=== PATIENT | female | born 1965 | race Caucasian/White ===

== ENCOUNTER 2018-04-23 22:45 | Emergency (ER) | payer OTHER ==
--- NOTE | 2018-04-23 23:18 | RAD ---
TWO VIEWS CHEST: Comparison: 05-04-15 History: Fluttering chest pain. FINDINGS: Two views of the chest show normal sized cardiomediastinal silhouette. There is no evidence of consol idation, mass, or pleural effusion. The bones are unremarkable. IMPRESSION: No evidence of acute cardiopulmonary disease. POS: [facility]
[2018-04-23 23:25] LABS: #Basophils 0.1 thou/uL (0.0-0.2); #Eosinphils 0.2 thou/uL (0.0-0.7); #Lymphocytes 2.6 thou/uL (1.20-3.40); #Monocytes 0.7 thou/uL (0.11-0.59); #Neutrophils 5.1 thou/uL (1.40-6.50); %Basophils 1.1 % (0.0-1.0); %Eosinophils 2.5 % (0.0-10.0); %Lymphocytes 29.7 % (21.0-51.0); %Neutrophils 58.7 % (42.0-75.0); Hemoglobin 15.3 g/dL (12.0-16.0); Mean Corpuscular HGB CONC 34.3 g/dL (32.0-36.0); Mean Corpuscular Volume 90.4 fL (78.0-98.0); Mean Platelet Volume 9.4 fL (7.4-10.4); Platelet Count 230 thou/uL (130-400); RBC Distribution Width 11.9 % (11.5-14.5); Red Blood Cell (RBC) Count 4.94 mill/uL (4.20-5.40); White Blood Cell (WBC) Count 8.7 thou/uL (4.8-10.8)
[2018-04-23 23:47] LABS: ALT (SGPT) 76 U/L (8-55); AST (SGOT) 52 U/L (5-34); Albumin 3.9 g/dL (3.5-5.0); Alkaline Phosphatase 214 U/L (40-150); Anion Gap 14 mmol/L (10-20); BUN (Urea Nitrogen) 14 mg/dL (9.8-20.1); Bilirubin, Total 0.6 mg/dL (0.2-1.2); CK (CPK) 35 U/L (29-168); Calc. Creatinine Clearance 0 mL/min (70-130); Calcium 9.2 mg/dL (7.8-10.44); Carbon Dioxide 23 mmol/L (22-29); Chloride 102 mmol/L (98-107); Estimated GFR-MDRD 61; Globulin 3.7 g/dL (2.4-3.5); Glucose 245 mg/dL (70-105); Potassium 3.8 mmol/L (3.5-5.1); Protein, Total 7.6 g/dL (6.0-8.3); Sodium 135 mmol/L (136-145)
[2018-04-23 23:51] LABS: CKMB 0.6 ng/mL (0-6.6); Troponin I Less than 0.010 ng/mL (< 0.028)
[2018-04-24 00:16] LABS: Thyroid Stimulating Hormone 5.7142 uIU/mL (0.35-4.94)
== END 2018-04-24 00:41 | disposition home or self-care (01) ==
LOC: ERS 22:45
DX: R00.2 Palpitations (principal); Z71.6 Tobacco abuse counseling; I10 Essential (primary) hypertension; F41.9 Anxiety disorder, unspecified; F32.9 Major depressive disorder, single episode, unspecified; F17.210 Nicotine dependence, cigarettes, uncomplicated; Z79.899 Other long term (current) drug therapy
CPT/HCPCS: 36415; 71046; 80053; 82550; 82553; 84436; 84443; 84484; 85025; 85379; 93005; 94760; 99406

== ENCOUNTER 2018-12-22 13:09 | Outpatient (CLI) | payer OTHER | END 2018-12-22 13:10 | disposition home or self-care (01) | LOC: DTY/OP 13:09 | PROVIDERS: ATTEND Specialist | DX: Z01.818 Encounter for other preprocedural examination (principal); E66.01 Morbid (severe) obesity due to excess calories | CPT/HCPCS: 97802 ==

== ENCOUNTER 2019-02-06 11:13 | Outpatient (CLI) | payer OTHER | END 2019-02-06 11:14 | disposition home or self-care (01) | LOC: DTY/OP 11:13 | PROVIDERS: ATTEND Specialist | DX: Z01.818 Encounter for other preprocedural examination (principal); E66.01 Morbid (severe) obesity due to excess calories | CPT/HCPCS: 97802 ==

== ENCOUNTER 2019-02-28 11:23 | Outpatient (CLI) | payer OTHER | END 2019-02-28 11:24 | disposition home or self-care (01) | LOC: DTY/OP 11:23 | PROVIDERS: ATTEND Specialist | DX: Z01.818 Encounter for other preprocedural examination (principal); E66.01 Morbid (severe) obesity due to excess calories | CPT/HCPCS: 97802 ==

== ENCOUNTER 2019-04-05 14:50 | Outpatient (CLI) | payer OTHER | END 2019-04-05 14:51 | disposition home or self-care (01) | LOC: DTY/OP 14:50 | PROVIDERS: ATTEND Specialist | DX: Z01.818 Encounter for other preprocedural examination (principal); E66.01 Morbid (severe) obesity due to excess calories | CPT/HCPCS: 97802 ==

== ENCOUNTER 2019-05-05 16:16 | Emergency (ER) | payer OTHER, MEDICAID ==
[2019-05-05 16:54] LABS: Bacteria/HPF 4+ HPF (None Seen); Bilirubin Negative (Negative); Blood, Urine 1+ (Negative); Clarity Turbid (Clear); Glucose, Urine (Dipstick) Normal (Negative); Leukocyte 500 Leu/uL (Negative); Nitrite Negative (Negative); Protein, Urine (Dipstick) 20 mg/dL (Neg-Trace); Urobilinogen Normal mg/dL (Less than 2); WBC/HPF Greater than 50 HPF (0-3)
[2019-05-05 17:08] LABS: #Basophils 0.1 thou/uL (0.0-0.2); #Eosinphils 0.2 thou/uL (0.0-0.7); #Lymphocytes 3.3 thou/uL (1.20-3.40); #Monocytes 0.9 thou/uL (0.11-0.59); #Neutrophils 9.3 thou/uL (1.40-6.50); %Basophils 0.4 % (0.0-1.0); %Eosinophils 1.7 % (0.0-10.0); %Lymphocytes 23.9 % (21.0-51.0); %Monocytes 6.5 % (0.0-10.0); %Neutrophils 67.5 % (42.0-75.0); Hemoglobin 14.5 g/dL (12.0-16.0); Mean Corpuscular HGB CONC 36.3 g/dL (32.0-36.0); Mean Corpuscular Hemoglobin 33.2 pg (27.0-31.0); Mean Corpuscular Volume 91.3 fL (78.0-98.0); Mean Platelet Volume 8.5 fL (7.4-10.4); Platelet Count 218 thou/uL (130-400); RBC Distribution Width 11.7 % (11.5-14.5); Red Blood Cell (RBC) Count 4.37 mill/uL (4.20-5.40); White Blood Cell (WBC) Count 13.8 thou/uL (4.8-10.8)
[2019-05-05 17:29] LABS: ALT (SGPT) 29 U/L (8-55); AST (SGOT) 23 U/L (5-34); Albumin 4.2 g/dL (3.5-5.0); Alkaline Phosphatase 91 U/L (40-110); Anion Gap 14 mmol/L (10-20); BUN (Urea Nitrogen) 19 mg/dL (9.8-20.1); Bilirubin, Total 0.4 mg/dL (0.2-1.2); Calc. Creatinine Clearance 0 mL/min (70-130); Calcium 9.6 mg/dL (7.8-10.44); Carbon Dioxide 25 mmol/L (22-29); Chloride 101 mmol/L (98-107); Estimated GFR-MDRD 58; Globulin 3.3 g/dL (2.4-3.5); Glucose 104 mg/dL (70-105); Potassium 3.9 mmol/L (3.5-5.1); Protein, Total 7.5 g/dL (6.0-8.3); Sodium 136 mmol/L (136-145)
--- NOTE | 2019-05-05 17:32 | RAD ---
Chest AP view INDICATION: Burning with urination COMPARISON: April 23, 2018 FINDINGS: Lungs:The lungs are clear Cardiac silhouette:The cardiomediastinal silhouette appears within normal limits. Pulmonary vasculature:Normal Pleural spaces:No pleural effusion or pneumothorax is demonstrated. Upper abdomen:No abnormality seen. Osseous structures: No acute osseous abnormality. Additional findings:None. IMPRESSION: No acute cardiopulmonary abnormality.
--- NOTE | 2019-05-05 18:29 | CT ---
CT OF THE ABDOMEN AND PELVIS WITHOUT IV CONTRAST INDICATION: Burning with urination COMPARISON: None FINDINGS: This examination is limited for the evaluation of solid organs and vascular structures due to the lac k of intravenous contrast. ABDOMEN: Lung bases: Clear Liver: Fatty infiltration Gallbladder: Surgically absent Pancreas: Normal. Adrenal glands: Normal. Spleen: Normal. Kidneys and ureters: There is lobulation involving superior pole left kidney likely reflective of anthony or renal cortical scarring. No renal or ureteral calculus is evident. No hydronephrosis is demonstrated. There is mild inflammatory stranding seen surrounding the proximal left ureter. Vasculature: Normal. Lymph nodes:No lymphadenopathy. Free fluid in abdomen:No free fluid is evident. PELVIS: Small and large bowel: Colonic diverticulosis. Appendix:Surgically absent Bladder: Normal. Rectal and perirectal soft tissues:Normal. Reproductive structures: Normal. Free fluid in pelvis: No free fluid is evident. Lymphadenopathy pelvis: No lymphadenopathy is evident. Osseous structures: No acute osseous abnormality. No destructive osteolytic or osteoblastic lesion i s identified. There is scattered degenerative and osteoarthritic changes. Soft tissues:Normal. IMPRESSION: 1. No renal or ureteral calculus. No hydronephrosis. There is mild inflammatory stranding involving t he proximal left ureter which is nonspecific. An ascending left-sided urinary tract infection cannot be entirely excluded. Component of pyelonephritis cannot be entirely excluded; however, there is no perinephric stranding. There is no asymmetric enlargement of the left kidney. Would recommend correlation with the clinical examination. Lobulation of the superior pole left kidney may reflect se quela of prior infection or trauma. 2. Fatty liver 3. Colonic diverticulosis
== END 2019-05-05 19:51 | disposition home or self-care (01) ==
LOC: ERS 16:16
DX: N12 Tubulo-interstitial nephritis, not specified as acute or chronic (principal); F41.9 Anxiety disorder, unspecified; F32.9 Major depressive disorder, single episode, unspecified; F17.210 Nicotine dependence, cigarettes, uncomplicated; I10 Essential (primary) hypertension; Z79.899 Other long term (current) drug therapy
CPT/HCPCS: 36415; 71045; 74176; 80053; 81003; 81015; 84484; 85025; 87077; 87086; 87186; 93005

== ENCOUNTER 2019-05-08 19:30 | Outpatient (CLI) | payer OTHER, MEDICAID | END 2019-05-08 19:31 | disposition home or self-care (01) | LOC: SLEEPLAB 19:30 | PROVIDERS: ATTEND Student in an Organized Health Care Education/Training Program | DX: G47.10 Hypersomnia, unspecified (principal); G47.33 Obstructive sleep apnea (adult) (pediatric); R53.83 Other fatigue; F31.9 Bipolar disorder, unspecified; F41.8 Other specified anxiety disorders; E11.9 Type 2 diabetes mellitus without complications; I10 Essential (primary) hypertension; G47.00 Insomnia, unspecified; R06.83 Snoring; E66.9 Obesity, unspecified; Z68.41 Body mass index [BMI] 40.0-44.9, adult | CPT/HCPCS: 95810 ==

== ENCOUNTER 2019-05-10 13:29 | Outpatient (CLI) | payer OTHER | END 2019-05-10 13:30 | disposition home or self-care (01) | LOC: DTY/OP 13:29 | PROVIDERS: ATTEND Specialist | DX: Z01.818 Encounter for other preprocedural examination (principal); E66.01 Morbid (severe) obesity due to excess calories | CPT/HCPCS: 97802 ==

== ENCOUNTER 2019-05-21 20:30 | Outpatient (CLI) | payer OTHER, MEDICAID | END 2019-05-21 20:31 | disposition home or self-care (01) | LOC: SLEEPLAB 20:30 | PROVIDERS: ATTEND Student in an Organized Health Care Education/Training Program | DX: G47.10 Hypersomnia, unspecified (principal); R53.83 Other fatigue; F31.9 Bipolar disorder, unspecified; E66.9 Obesity, unspecified; F41.8 Other specified anxiety disorders; I10 Essential (primary) hypertension; E11.9 Type 2 diabetes mellitus without complications; G47.33 Obstructive sleep apnea (adult) (pediatric) | CPT/HCPCS: 95811 ==

== ENCOUNTER 2019-06-14 11:28 | Outpatient (CLI) | payer OTHER | END 2019-06-14 11:29 | disposition home or self-care (01) | LOC: DTY/OP 11:28 | PROVIDERS: ATTEND Specialist | DX: Z01.818 Encounter for other preprocedural examination (principal); E66.01 Morbid (severe) obesity due to excess calories | CPT/HCPCS: 97802 ==

== ENCOUNTER 2019-12-19 06:55 | Outpatient (CLI) | payer OTHER ==
--- NOTE | 2019-12-19 07:40 | ULT ---
Sonogram right upper quadrant HISTORY: Abnormal liver function tests. FINDINGS: The gallbladder is surgically absent. Common duct is 0.6 cm. Liver is prominent and diffusely echogenic. No focal mass or intrahepatic biliary dilatation. No free fluid. IMPRESSION : Status post cholecystectomy. No evidence of biliary obstruction. Hepato-steatosis.
== END 2019-12-19 06:56 | disposition home or self-care (01) ==
LOC: BICULT 06:55
PROVIDERS: ATTEND Student in an Organized Health Care Education/Training Program
DX: R74.0 Nonspecific elevation of levels of transaminase and lactic acid dehydrogenase [LDH] (principal); K76.0 Fatty (change of) liver, not elsewhere classified; Z90.49 Acquired absence of other specified parts of digestive tract
CPT/HCPCS: 76705

== ENCOUNTER 2020-02-06 16:07 | Emergency (ER) | payer OTHER ==
[2020-02-06 17:10] LABS: #Basophils 0.1 thou/uL (0.0-0.2); #Eosinphils 0.2 thou/uL (0.0-0.7); #Lymphocytes 2.1 thou/uL (1.20-3.40); #Monocytes 0.7 thou/uL (0.11-0.59); #Neutrophils 6.7 thou/uL (1.40-6.50); %Basophils 0.8 % (0.0-1.0); %Eosinophils 2.1 % (0.0-10.0); %Lymphocytes 21.7 % (21.0-51.0); %Monocytes 6.8 % (0.0-10.0); %Neutrophils 68.6 % (42.0-75.0); Hemoglobin 15.4 g/dL (12.0-16.0); Mean Corpuscular HGB CONC 33.2 g/dL (32.0-36.0); Mean Corpuscular Hemoglobin 30.3 pg (27.0-31.0); Mean Corpuscular Volume 91.2 fL (78.0-98.0); Mean Platelet Volume 9.1 fL (7.4-10.4); Platelet Count 205 thou/uL (130-400); RBC Distribution Width 11.8 % (11.5-14.5); Red Blood Cell (RBC) Count 5.08 mill/uL (4.20-5.40); White Blood Cell (WBC) Count 9.8 thou/uL (4.8-10.8)
[2020-02-06 17:35] LABS: ALT (SGPT) 92 U/L (8-55); AST (SGOT) 46 U/L (5-34); Albumin 4.3 g/dL (3.5-5.0); Alkaline Phosphatase 168 U/L (40-110); Anion Gap 14 mmol/L (10-20); BUN (Urea Nitrogen) 15 mg/dL (9.8-20.1); Bilirubin, Total 0.4 mg/dL (0.2-1.2); Calc. Creatinine Clearance 0 mL/min (70-130); Calcium 9.1 mg/dL (7.8-10.44); Carbon Dioxide 23 mmol/L (22-29); Chloride 101 mmol/L (98-107); Estimated GFR-MDRD 59; Globulin 3.5 g/dL (2.4-3.5); Glucose 333 mg/dL (70-105); Lipase 31 U/L (8-78); Potassium 4.2 mmol/L (3.5-5.1); Protein, Total 7.8 g/dL (6.0-8.3); Sodium 134 mmol/L (136-145)
--- NOTE | 2020-02-06 18:43 | CT ---
CT ABODMEN AND PELVIS WITHOUT CONTRAST USING STONE PROTOCOL: 02/06/20 HISTORY: Right flank pain. COMPARISON: 05/05/19. DISCLAIMER: Absence of oral and IV contrast reduces the sensitivity for the exam particularly for evaluation of s olid organs and bowel. FINDINGS: the lung bases are clear. Changes of fatty infiltration of the liver are again seen. The patient is p ost cholecystectomy. No free air or free fluid is seen in the abdomen or pelvis. No calculi is seen in the kidneys, ureters or the urinary bladder. No hydroureteronephrosis seen on e ither side. The small bowel loops are not abnormally dilated. The patient is post cholecystectomy. Mild colonic d iverticulosis again seen without evidence of diverticulitis. Uterus is present. There is no evidence of aneurysmal dilatation of the abdominal aorta. There are mild degenerative patsy nges of the spine. IMPRESSION: 1. No CT evidence of urinary tract calculi or obstruction. 2. Fatty liver. 3. Colonic diverticulosis. POS: [facility]
[2020-02-06 19:45] LABS: Bilirubin Small (Negative); Blood, Urine Trace (Negative); Glucose, Urine (Dipstick) 500 mg/dL (Negative); Ketone, Urine Trace mg/dL (Negative); Leukocyte Negative (Negative); Nitrite Negative (Negative); Protein, Urine (Dipstick) 30 mg/dL (Neg-Trace); Urobilinogen 0.2 mg/dL (Less than 2)
[2020-02-06 19:59] LABS: Clarity Clear (Clear)
[2020-02-06 20:00] LABS: Bacteria/HPF None Seen HPF (None Seen); RBC/HPF None Seen HPF (0-3); Specific Gravity, Urine 1.039 (1.002-1.036); Squamous Epithelial 0-3 HPF (0-3); WBC/HPF None Seen HPF (0-3)
[2020-02-06 20:01] LABS: Calcium Oxalate Crystals 1+ HPF (None Seen)
== END 2020-02-06 20:45 | disposition home or self-care (01) ==
LOC: ERS 16:07
DX: R10.9 Unspecified abdominal pain (principal); R11.0 Nausea; I10 Essential (primary) hypertension; E11.9 Type 2 diabetes mellitus without complications; F41.9 Anxiety disorder, unspecified; F31.9 Bipolar disorder, unspecified; F17.210 Nicotine dependence, cigarettes, uncomplicated; Z79.84 Long term (current) use of oral hypoglycemic drugs; Z79.899 Other long term (current) drug therapy
CPT/HCPCS: 74176; 80053; 81003; 81015; 83690; 85025

== ENCOUNTER 2020-07-21 00:12 | Emergency (ER) | payer OTHER ==
[2020-07-21 00:59] LABS: Anion Gap 19 mmol/L (10-20); BUN (Urea Nitrogen) 12 mg/dL (9.8-20.1); Calc. Creatinine Clearance 0 mL/min (70-130); Calcium 8.7 mg/dL (7.8-10.44); Carbon Dioxide 21 mmol/L (22-29); Chloride 102 mmol/L (98-107); Glucose 290 mg/dL (70-105); Sodium 138 mmol/L (136-145)
[2020-07-21] MEDS ORDERED: Ketorolac Tromethamine 30 MG/ML VIAL ONE (02:00)
[2020-07-21 02:29] LABS: Bacteria/HPF 4+ HPF (None Seen); Bilirubin Negative (Negative); Blood, Urine 1+ (Negative); Clarity Turbid (Clear); Glucose, Urine (Dipstick) >=1000 mg/dL (Negative); Ketone, Urine Negative (Negative); Leukocyte 500 Leu/uL (Negative); Nitrite Negative (Negative); Protein, Urine (Dipstick) 30 mg/dL (Neg-Trace); Specific Gravity, Urine 1.015 (1.002-1.036); Urobilinogen Normal mg/dL (Less than 2); WBC/HPF Greater than 50 HPF (0-3)
--- NOTE | 2020-07-21 07:44 | CT ---
PRELIMINARY REPORT/[facility]/EMERGENCY AFTER HOURS PROCEDURE EXAM: CT Abdomen and Pelvis Without Intravenous Contrast CLINICAL HISTORY: Patient reports right sided flank pain, more on the back. Also c/o nausea TECHNIQUE: Axial computed tomography images of the abdomen and pelvis without intravenous contrast. Coronal and sagittal reformatted images provided. CONTRAST: None. COMPARISON: None provided. FINDINGS: LUNG BASES: No basilar airspace consolidation or pleural effusion. LIVER: Diffuse fatty liver and enlargement with no focal hepatic lesion. GALLBLADDER AND BILE DUCTS: The gallbladder surgically absent. PANCREAS: Unremarkable. SPLEEN: Unremarkable. ADRENAL GLANDS: Unremarkable. KIDNEYS, URETERS, AND BLADDER: Unremarkable. No hydronephrosis or nephrolithiasis. No ureteral or bladder calculi. STOMACH AND BOWEL: No obstruction. No wall thickening. No CT evidence of colitis or acute diverticulitis. APPENDIX: The appendix is surgically absent. PERITONEUM: No free fluid. No free air. LYMPH NODES: No lymphadenopathy. REPRODUCTIVE: Unremarkable as visualized. VASCULATURE: No aortic aneurysm. ABDOMINAL WALL AND SOFT TISSUES: Unremarkable. BONES: Multilevel degenerative change of the spine. No acute fractures or worrisome osseous lesions. IMPRESSION: 1. No acute intra-abdominal or pelvic abnormality. No evidence of urinary stone. 2. Fatty liver with hepatomegaly. 3. Prior appendectomy and cholecystectomy. ELECTRONICALLY SIGNED BY: Lauro Wolf M.D. Jul 21, 2020 1:11:03 AM PANTOGRAPHER This report is intended for review by the ordering physician only, in accordance of law. If you recei ve this report in error, please call [facility] at [phone]. FINAL REPORT Emergent after hours noncontrast CT abdomen and pelvis HISTORY: Right-sided flank pain and back pain as well as nausea. COMPARISON: 02/06/2020 IMPRESSION: 1. Hepatomegaly with liver measuring 22 cm in craniocaudal dimensions. Hepatic steatosis is present. 2. Spleen upper limits of normal in size. 3. No renal or ureteral calculi bilaterally, and there is no hydronephrosis. Mild scarring is again s een at the superior pole left kidney. 4. Postcholecystectomy changes. 5. Appendix is not visualized, and there is suture material in the region of the cecal apex likely at tributable to prior appendectomy. 6. Findings are in agreement with preliminary report by [facility]. Code QA Transcribed Date/Time: 07/21/2020 7:49 AM
== END 2020-07-21 02:54 | disposition home or self-care (01) ==
LOC: ERS 00:12
DX: N39.0 Urinary tract infection, site not specified (principal); I10 Essential (primary) hypertension; E11.9 Type 2 diabetes mellitus without complications; F17.210 Nicotine dependence, cigarettes, uncomplicated; Z79.899 Other long term (current) drug therapy
CPT/HCPCS: 36415; 74176; 80048; 81003; 81015; 96374; J1885

== ENCOUNTER 2020-08-17 06:59 | Observation (INO) | payer OTHER ==
[2020-08-17] MEDS ORDERED: Nitroglycerin 2% Ointment 1 INCH/1 GM Packet ONE (07:22)
[2020-08-17 07:52] LABS: #Eosinphils 0.1 thou/uL (0.0-0.7); #Lymphocytes 1.6 thou/uL (1.20-3.40); #Monocytes 0.6 thou/uL (0.11-0.59); #Neutrophils 5.9 thou/uL (1.40-6.50); %Basophils 0.6 % (0.0-1.0); %Eosinophils 1.5 % (0.0-10.0); %Lymphocytes 19.7 % (21.0-51.0); %Monocytes 6.6 % (0.0-10.0); %Neutrophils 71.5 % (42.0-75.0); Hemoglobin 15.4 g/dL (12.0-16.0); Mean Corpuscular HGB CONC 34.2 g/dL (32.0-36.0); Mean Corpuscular Hemoglobin 30.6 pg (27.0-31.0); Mean Corpuscular Volume 89.4 fL (78.0-98.0); Mean Platelet Volume 8.8 fL (7.4-10.4); Platelet Count 186 thou/uL (130-400); RBC Distribution Width 11.8 % (11.5-14.5); Red Blood Cell (RBC) Count 5.05 mill/uL (4.20-5.40); White Blood Cell (WBC) Count 8.2 thou/uL (4.8-10.8)
[2020-08-17 08:14] LABS: ALT (SGPT) 88 U/L (8-55); AST (SGOT) 58 U/L (5-34); Albumin 4.3 g/dL (3.5-5.0); Alkaline Phosphatase 240 U/L (40-110); Anion Gap 15 mmol/L (10-20); BUN (Urea Nitrogen) 14 mg/dL (9.8-20.1); Bilirubin, Total 0.7 mg/dL (0.2-1.2); Calc. Creatinine Clearance 0 mL/min (70-130); Calcium 9.2 mg/dL (7.8-10.44); Carbon Dioxide 25 mmol/L (22-29); Chloride 98 mmol/L (98-107); Globulin 3.8 g/dL (2.4-3.5); Glucose 266 mg/dL (70-105); Lipase 18 U/L (8-78); Potassium 4.2 mmol/L (3.5-5.1); Protein, Total 8.1 g/dL (6.0-8.3); Sodium 134 mmol/L (136-145)
[2020-08-17] MEDS ORDERED: Ondansetron PF 4 MG/2 ML Vial ONE (08:55)
[2020-08-17] MEDS ORDERED: Labetalol HCl 100 MG/20 ML VIAL ONE (08:55)
[2020-08-17 09:08] LABS: Bacteria/HPF 4+ HPF (None Seen); Bilirubin Negative (Negative); Blood, Urine 1+ (Negative); Clarity Clear (Clear); Glucose, Urine (Dipstick) 500 mg/dL (Negative); Ketone, Urine Negative (Negative); Leukocyte 500 Leu/uL (Negative); Nitrite Negative (Negative); Protein, Urine (Dipstick) 20 mg/dL (Neg-Trace); Specific Gravity, Urine 1.012 (1.002-1.036); Squamous Epithelial 0-3 HPF (0-3); Urobilinogen Normal mg/dL (Less than 2); WBC/HPF 21-50 HPF (0-3)
[2020-08-17] MEDS ORDERED: Ondansetron PF 4 MG/2 ML Vial IVP PRN (10:55)
[2020-08-17] MEDS ORDERED: Dextrose 50% Abboject 50 ML SYRINGE SLOW IVP PRN (10:55)
[2020-08-17] MEDS ORDERED: Dextrose 5% in Water 1,000 ML IV PRN (10:55)
[2020-08-17] MEDS ORDERED: Ondansetron ODT 4 MG TAB PO PRN (10:55)
[2020-08-17] MEDS ORDERED: clonazePAM 0.5 MG TAB PO PRN (11:13)
[2020-08-17 11:36] VITALS: BMI 45.8
[2020-08-17 11:51] LABS: Troponin I Less than 0.010 ng/mL (< 0.028)
[2020-08-17] MEDS ORDERED: Labetalol HCl 100 MG/20 ML VIAL SLOW IVP PRN (13:12)
[2020-08-17] MEDS ORDERED: Ibuprofen 600 MG TAB PO PRN (14:04)
[2020-08-17 14:09] LABS: Troponin I Less than 0.010 ng/mL (< 0.028)
[2020-08-17 14:50] LABS: Cardiac Risk 6.6 (Less than 4.5)
[2020-08-17] MEDS ORDERED: Fluconazole 100 MG TAB PO SCH (15:15)
[2020-08-17] MEDS: metFORMIN 500 MG TAB PO SCH (17:00)
[2020-08-17 17:05] LABS: SARS-CoV-2 PCR by NAA Not Detected (NotDetected)
[2020-08-18 05:02] LABS: #Eosinphils 0.2 thou/uL (0.0-0.7); #Lymphocytes 2.4 thou/uL (1.20-3.40); #Monocytes 0.7 thou/uL (0.11-0.59); #Neutrophils 6.3 thou/uL (1.40-6.50); %Basophils 0.5 % (0.0-1.0); %Eosinophils 1.6 % (0.0-10.0); %Lymphocytes 25.1 % (21.0-51.0); %Monocytes 6.9 % (0.0-10.0); %Neutrophils 65.9 % (42.0-75.0); Hemoglobin 15.7 g/dL (12.0-16.0); Mean Corpuscular HGB CONC 33.6 g/dL (32.0-36.0); Mean Corpuscular Hemoglobin 30.2 pg (27.0-31.0); Mean Corpuscular Volume 89.9 fL (78.0-98.0); Platelet Count 239 thou/uL (130-400); RBC Distribution Width 11.9 % (11.5-14.5); White Blood Cell (WBC) Count 9.5 thou/uL (4.8-10.8)
[2020-08-18 05:24] LABS: ALT (SGPT) 95 U/L (8-55); AST (SGOT) 66 U/L (5-34); Albumin 4.3 g/dL (3.5-5.0); Alkaline Phosphatase 250 U/L (40-110); Anion Gap 15 mmol/L (10-20); BUN (Urea Nitrogen) 16 mg/dL (9.8-20.1); Bilirubin, Total 0.7 mg/dL (0.2-1.2); Calc. Creatinine Clearance 120 mL/min (70-130); Calcium 9.5 mg/dL (7.8-10.44); Carbon Dioxide 27 mmol/L (22-29); Chloride 99 mmol/L (98-107); Globulin 4.2 g/dL (2.4-3.5); Glucose 220 mg/dL (70-105); Potassium 4.7 mmol/L (3.5-5.1); Protein, Total 8.5 g/dL (6.0-8.3); Sodium 136 mmol/L (136-145)
[2020-08-18] MEDS ORDERED: Levothyroxine Sodium 50 MCG TAB PO SCH (06:00)
[2020-08-18] MEDS ORDERED: cefTRIAXone\\ROCEPHIN 1 GM in Sodium Chloride 0.9% 100 ML IVPB SCH (07:30)
[2020-08-18] MEDS: metFORMIN 500 MG TAB PO SCH (07:43)
[2020-08-18] MEDS ORDERED: Amlodipine 10 MG TAB PO SCH (09:00)
[2020-08-18] MEDS ORDERED: Atorvastatin Calcium 40 MG TAB PO SCH (09:00)
[2020-08-18] MEDS ORDERED: Lisinopril 20 MG TAB PO SCH (09:00)
[2020-08-18] MEDS ORDERED: FLU VACC QS2020-21(6MOS UP)/PF 60 MCG/0.5 ML SYRINGE IM ONE (09:00)
[2020-08-18] MEDS ORDERED: Alogliptin 25 MG TAB PO SCH (09:00)
[2020-08-18] MEDS ORDERED: Bupropion 150 MG XL TAB PO SCH (09:00)
[2020-08-18] MEDS ORDERED: Lisinopril 5 MG TAB PO SCH (09:00)
[2020-08-18 11:12] VITALS: BP 120/58; TEMP 98.5
== END 2020-08-18 13:53 | disposition home or self-care (01) ==
LOC: ERS 06:59 → 2SW 10:13
PROVIDERS: ADMIT Family Medicine; ATTEND Family Medicine
DX: I16.0 Hypertensive urgency (principal); B37.3 Candidiasis of vulva and vagina; N39.0 Urinary tract infection, site not specified; E11.9 Type 2 diabetes mellitus without complications; E78.5 Hyperlipidemia, unspecified; K76.0 Fatty (change of) liver, not elsewhere classified; K21.9 Gastro-esophageal reflux disease without esophagitis; I10 Essential (primary) hypertension; E03.9 Hypothyroidism, unspecified; F41.1 Generalized anxiety disorder; F43.10 Post-traumatic stress disorder, unspecified; F17.210 Nicotine dependence, cigarettes, uncomplicated; Z79.84 Long term (current) use of oral hypoglycemic drugs; Z79.899 Other long term (current) drug therapy; Z88.1 Allergy status to other antibiotic agents; Z88.2 Allergy status to sulfonamides; Z88.5 Allergy status to narcotic agent; Z88.6 Allergy status to analgesic agent; Z88.8 Allergy status to other drugs, medicaments and biological substances; Z20.822 Contact with and (suspected) exposure to COVID-19
CPT/HCPCS: 36415; 36416; 71045; 80053; 80061; 81003; 81015; 83690; 84443; 84484; 85025; 87077; 87086; 87186; 87635; 93005; 96374; 96375; 96376; G0378; J0696; J2405; J3490; Q0162; U0003; U0005

== ENCOUNTER 2021-03-16 10:47 | Outpatient (CLI) | payer OTHER | END 2021-03-16 10:48 | disposition home or self-care (01) | LOC: DTY/OP 10:47 | PROVIDERS: ATTEND Family Medicine | DX: E11.65 Type 2 diabetes mellitus with hyperglycemia (principal); E66.9 Obesity, unspecified; I10 Essential (primary) hypertension | CPT/HCPCS: 97802 ==

== ENCOUNTER 2022-12-21 20:55 | Emergency (ER) | payer OTHER ==
[2022-12-21] MEDS ORDERED: Lidocaine 1% w/Epinephrine 1:100K 20 ML VIAL ONE (22:12)
== END 2022-12-21 22:31 | disposition home or self-care (01) ==
LOC: ERS 20:55
DX: L02.211 Cutaneous abscess of abdominal wall (principal); I10 Essential (primary) hypertension; E11.9 Type 2 diabetes mellitus without complications; F17.210 Nicotine dependence, cigarettes, uncomplicated
CPT/HCPCS: 10060; 87070; 87077; 87186; 87205

== ENCOUNTER 2023-09-27 13:08 | Emergency (ER) | payer OTHER ==
[2023-09-27] MEDS ORDERED: Ketorolac Tromethamine 30 MG (1 mL) VIAL ONE (15:41)
== END 2023-09-27 17:54 | disposition home or self-care (01) ==
LOC: ERS 13:08
DX: S20.212A Contusion of left front wall of thorax, initial encounter (principal); I10 Essential (primary) hypertension; E11.9 Type 2 diabetes mellitus without complications; Z79.899 Other long term (current) drug therapy; Z79.84 Long term (current) use of oral hypoglycemic drugs; W10.1XXA Fall (on)(from) sidewalk curb, initial encounter
CPT/HCPCS: 96372; J1885

== ENCOUNTER 2023-09-29 15:04 | Observation (INO) | payer OTHER ==
[2023-09-29 15:42] LABS: #Basophils 0.07 10x3/uL (0.0-0.2); %Basophils 0.6 % (0.0-1.0); %Eosinophils 1.8 % (0.0-10.0); %Lymphocytes 26.4 % (21.0-51.0); %Monocytes 7.3 % (0.0-10.0); %Neutrophils 63.5 % (42.0-75.0); Hematocrit 42.8 % (36.0-47.0); Hemoglobin 14.4 g/dL (12.0-16.0); Mean Corpuscular HGB CONC 33.6 g/dL (32.0-36.0); Mean Corpuscular Hemoglobin 29.4 pg (27.0-31.0); Mean Corpuscular Volume 87.3 fL (78.0-98.0); Mean Platelet Volume 11.6 fL (7.4-10.4); Platelet Count 272 10x3/uL (130-400); RBC Distribution Width 12.3 % (11.5-14.5)
[2023-09-29 16:04] LABS: Troponin I Less than 0.010 ng/mL (< 0.028)
[2023-09-29 16:15] LABS: ALT (SGPT) 29 U/L (8-55); AST (SGOT) 19 U/L (5-34); Alkaline Phosphatase 130 U/L (40-110); Anion Gap 17 mmol/L (10-20); BUN (Urea Nitrogen) 14 mg/dL (9.8-20.1); Bilirubin, Total 0.5 mg/dL (0.2-1.2); Calc. Creatinine Clearance 0 mL/min (70-130); Calcium 9.6 mg/dL (7.8-10.44); Carbon Dioxide 22 mmol/L (22-29); Chloride 102 mmol/L (98-107); Estimated GFR 78; Glucose 231 mg/dL (70-105); Potassium 4.4 mmol/L (3.5-5.1); Sodium 137 mmol/L (136-145)
[2023-09-29] MEDS ORDERED: Aspirin Chewable 81 MG TAB ONE (16:18)
[2023-09-29] MEDS ORDERED: Nicotine 14 MG PATCH ONE (16:54)
[2023-09-29] MEDS ORDERED: Ondansetron ODT 4 MG TAB PO PRN (17:00)
[2023-09-29] MEDS ORDERED: Dextrose 50% Abboject 50 ML SYRINGE SLOW IVP PRN (17:00)
[2023-09-29] MEDS ORDERED: Glucagon 1 MG/ML KIT IM PRN (17:00)
[2023-09-29] MEDS ORDERED: Dextrose 5% in Water 1,000 ML IV PRN (17:00)
[2023-09-29] MEDS ORDERED: Acetaminophen 325 MG TAB PO PRN (17:00)
[2023-09-29] MEDS ORDERED: Lidocaine 4% Patch TD PRN (17:13)
[2023-09-29] MEDS ORDERED: fentaNYL 50 mcg/mL 1 mL Vial SLOW IVP PRN (17:15)
[2023-09-29 17:30] LABS: PTT 25.8 sec (22.9-36.1)
[2023-09-29] MEDS ORDERED: Transdermal Patch Removal TOP PRN (17:36)
[2023-09-29 17:41] LABS: Hemoglobin A1c 9.2 % (4.0-6.0)
[2023-09-29 17:46] LABS: Cardiac Risk 4.8 (Less than 4.5)
[2023-09-29 19:59] VITALS: BMI 45.3
[2023-09-29] MEDS: HumaLOG 300 UNITS/3 ML VIAL SC PRN (20:24)
[2023-09-29] MEDS: Varenicline Tartrate 0.5 MG TAB PO SCH (20:26)
[2023-09-29] MEDS: Atorvastatin Calcium 40 MG TAB PO SCH (20:26)
[2023-09-30 04:34] LABS: #Basophils 0.08 10x3/uL (0.0-0.2); %Basophils 0.9 % (0.0-1.0); %Eosinophils 1.9 % (0.0-10.0); %Lymphocytes 30.8 % (21.0-51.0); %Neutrophils 58.2 % (42.0-75.0); Hematocrit 39.7 % (36.0-47.0); Hemoglobin 13.2 g/dL (12.0-16.0); Mean Corpuscular HGB CONC 33.2 g/dL (32.0-36.0); Mean Corpuscular Hemoglobin 28.8 pg (27.0-31.0); Mean Corpuscular Volume 86.7 fL (78.0-98.0); Mean Platelet Volume 11.7 fL (7.4-10.4); Platelet Count 226 10x3/uL (130-400); RBC Distribution Width 12.2 % (11.5-14.5); Red Blood Cell (RBC) Count 4.58 mill/uL (4.20-5.40)
[2023-09-30 05:03] LABS: ALT (SGPT) 22 U/L (8-55); AST (SGOT) 14 U/L (5-34); Albumin 3.6 g/dL (3.5-5.0); Alkaline Phosphatase 118 U/L (40-110); Anion Gap 15 mmol/L (10-20); BUN (Urea Nitrogen) 15 mg/dL (9.8-20.1); Bilirubin, Total 0.4 mg/dL (0.2-1.2); Calc. Creatinine Clearance 141 mL/min (70-130); Calcium 9.2 mg/dL (7.8-10.44); Carbon Dioxide 24 mmol/L (22-29); Chloride 103 mmol/L (98-107); Estimated GFR 79; Globulin 3.4 g/dL (2.4-3.5); Glucose 273 mg/dL (70-105); Potassium 4.2 mmol/L (3.5-5.1); Sodium 138 mmol/L (136-145)
[2023-09-30] MEDS: Levothyroxine Sodium 50 MCG TAB PO SCH (05:45)
[2023-09-30] MEDS: HumaLOG 300 UNITS/3 ML VIAL SC PRN (05:46)
[2023-09-30] MEDS: metFORMIN 500 MG TAB PO SCH (09:35)
[2023-09-30] MEDS: Varenicline Tartrate 0.5 MG TAB PO SCH (09:36)
[2023-09-30] MEDS: Sertraline 100 MG TAB PO SCH (09:36)
[2023-09-30] MEDS: Pantoprazole DR 40 MG TAB PO SCH (09:36)
[2023-09-30] MEDS: BuPROPion XL 150 MG ER.TAB PO SCH (09:37)
[2023-09-30] MEDS: Aspirin 81 mg Enteric Coated Tablet PO SCH (09:40)
[2023-09-30] MEDS: Enoxaparin 40 MG (0.4 mL) SYRINGE SC SCH (09:40)
[2023-09-30] MEDS: Alogliptin 25 MG TAB PO SCH (10:46)
[2023-09-30] MEDS: Lisinopril 20 MG TAB PO SCH (10:46)
[2023-09-30] MEDS: Empagliflozin 10 MG TAB PO SCH (10:46)
[2023-09-30] MEDS: Amlodipine 10 MG TAB PO SCH (10:47)
[2023-09-30 11:26] VITALS: TEMP 99.2
[2023-09-30 12:25] VITALS: BP 159/89
[2023-10-01] MEDS ORDERED: Amlodipine 10 MG TAB PO SCH (09:00)
[2023-10-01] MEDS ORDERED: Lisinopril 20 MG TAB PO SCH (09:00)
== END 2023-09-30 14:30 | disposition home or self-care (01) ==
LOC: ERS 15:04 → ERHOLD 17:07 → 2SE 18:50
PROVIDERS: ADMIT Family Medicine; ATTEND Family Medicine
DX: R90.82 White matter disease, unspecified (principal); R20.0 Anesthesia of skin; E11.9 Type 2 diabetes mellitus without complications; I10 Essential (primary) hypertension; E78.5 Hyperlipidemia, unspecified; F41.9 Anxiety disorder, unspecified; N20.0 Calculus of kidney; E55.9 Vitamin D deficiency, unspecified; K70.0 Alcoholic fatty liver; R74.8 Abnormal levels of other serum enzymes; D72.829 Elevated white blood cell count, unspecified; F32.9 Major depressive disorder, single episode, unspecified; F17.290 Nicotine dependence, other tobacco product, uncomplicated; W18.30XA Fall on same level, unspecified, initial encounter; Z88.1 Allergy status to other antibiotic agents; Z88.2 Allergy status to sulfonamides; Z88.5 Allergy status to narcotic agent; Z88.6 Allergy status to analgesic agent; Z88.8 Allergy status to other drugs, medicaments and biological substances; Z91.041 Radiographic dye allergy status; Z90.49 Acquired absence of other specified parts of digestive tract; Z79.84 Long term (current) use of oral hypoglycemic drugs; Z79.899 Other long term (current) drug therapy
CPT/HCPCS: 36415; 36416; 70450; 70551; 71045; 80053; 80061; 83036; 84443; 84484; 85025; 85610; 85730; 93005; 96372; G0378; J1650; J1815; J1885

== ENCOUNTER 2023-12-09 14:25 | Outpatient (CLI) | payer OTHER ==
[2023-12-09] MEDS ORDERED: Magnevist 469MG/ML 20 ML VIAL ONE (16:01)
== END 2023-12-09 14:26 | disposition home or self-care (01) ==
LOC: BICMRI 14:25
PROVIDERS: ATTEND Student in an Organized Health Care Education/Training Program
DX: G45.9 Transient cerebral ischemic attack, unspecified (principal); R93.0 Abnormal findings on diagnostic imaging of skull and head, not elsewhere classified; J34.89 Other specified disorders of nose and nasal sinuses
CPT/HCPCS: 70553; 82565; A9579